=== PATIENT | female | born 1975 | race Hispanic/Latino ===

== ENCOUNTER 2018-05-08 20:14 | Emergency (ER) | payer SELFPAY ==
[~2018-05-08] VITALS: Ht 154.9 cm; Wt 81.6 kg
[~2018-05-08 20:14] MED LIST: XANAX0.5 MG PO
[2018-05-08] MEDS ORDERED: IBUPROFEN 600 MG TAB PO STA (21:12)
[2018-05-08] MEDS ORDERED: ACETAMINOPHEN 325 MG TAB PO ONE ×2 (21:15)
[2018-05-08] MEDS ORDERED: DEXAMETHASONE 10MG/ML PF INJ IV ONE (21:15)
[2018-05-08] MEDS ORDERED: IBUPROFEN 600 MG TAB ONE (21:16)
[2018-05-08] MEDS ORDERED: ACETAMINOPHEN 325 MG TAB ONE (21:16)
[2018-05-08] MEDS ORDERED: DEXAMETHASONE SOD PHOS 10 MG/1 ML VIAL ONE (21:17)
[2018-05-08 22:10] VITALS: BP 116/70
== END 2018-05-08 22:15 | disposition home or self-care (01) ==
LOC: ER 20:14
DX: R50.9 Fever, unspecified (principal); J02.0 Streptococcal pharyngitis
CPT/HCPCS: 83518; 87070; 93005; 99282; J1100

== ENCOUNTER 2018-05-11 07:37 | Emergency (ER) | payer SELFPAY ==
[~2018-05-11] VITALS: Ht 154.9 cm; Wt 81.6 kg
--- NOTE | 2018-05-11 08:34 | Diagnostic Imaging Report ---
Soft Tissue Neck CPT code: 57339 History: Sore throat, fever Comparison: Chest x-ray 04/10/2017. Findings: AP and lateral views obtained. There is no radiopaque foreign body. A calcified stylohyoid ligament projects inferior to the anterior arch of C1 on lateral image. The prevertebral soft tissues are normal. No enlargement of the adenoids. The airway is neither dilated nor narrowed. The epiglottis is normal. The osseous structures are intact. There are mild degenerative changes at C5-6. Calcified granuloma or bone island in the left upper lobe measures 5 mm and is stable. IMPRESSION: No abnormalities of the soft tissues of the neck. Signed by: Dr. Ana Magana MD on 05/11/2018 8:31 AM
[2018-05-11 08:41] VITALS: BP 127/98
== END 2018-05-11 09:00 | disposition home or self-care (01) ==
LOC: ER 07:37
DX: J02.9 Acute pharyngitis, unspecified (principal); F41.9 Anxiety disorder, unspecified
CPT/HCPCS: 70360; 99283

== ENCOUNTER 2020-01-22 10:48 | Emergency (ER) | payer SELFPAY ==
[~2020-01-22] VITALS: Ht 154.9 cm; Wt 81.6 kg
--- OUTSIDE RECORDS SUMMARY | 2020-01-22 10:50 | XMS REPORT ---
Author [facility] Address Unknown Phone Unavailable Care Team Providers Care Embedded Hardware Engineer Name Role Phone NO, PCP PP Unavailable Lauryn ROMEO Unavailable Unavailable Payers Payer Name Policy Type Policy Number Effective Date Expiration Date Problems This patient has no known problems. Allergies, Adverse Reactions, Alerts Allergy Name Allergy Type Status Severity Reaction(s) Onset Date Inactive Date Treating Clinician Comments No Known Allergies DA Active U 2018-12-05 00:00:00 Medications Ordered Medication Name Filled Medication Name Start Date Stop Date Current Medication? Ordering Clinician Indication Dosage Frequency Signature (SIG) Comments Components Alprazolam (Xanax) 0.5 Mg Tablet Alprazolam (Xanax) 0.5 Mg Tablet Yes .5 As Needed Encounters Start Date/Time End Date/Time Encounter Type Admission Type Attending Clinicians Care Facility Care Department Encounter ID 2018-05-11 07:37:00 2018-05-11 09:00:00 Departed Emergency Room 1 NIKA ROMEO [facility] [id number] 2018-05-08 20:14:00 2018-05-08 22:15:00 Departed Emergency Room [facility] [id number] Results Test Description Test Time Test Comments Text Results Atomic Results Result Comments D-DIMER 2019-03-25 20:37:00 D-DIMER (test code=DDIMER) 440.00 ng/mLFEU 0-500 Clinical Cut-off value for D- Dimer is 500 ng/mL FEU. Comment: The [employer] D-Dimer assay is intended for use asan aid in the diagnosis of venous thromboembolism (VTE)[deep vein thrombosis (DVT) or pulmonary embolism (PE)].The measurement of D-Dimer should not be used as an aid inthe diagnosis of VTE, in patient with: -Therapeutic dose anticoagulant therapy for >24 hours -Fibrinolytic therapy within previous 7 days -Trauma or surgery within previous 4 weeks -Disseminated malignancies - Aortic aneurysm -Sepsis, severe infections, pneumonia, severe skin infections -Liver cirrhosis - BASIC METABOLIC [id number] 19:54:00* Test Item Value Reference Range Comments SODIUM (test code=NA) 137 mmol/L 136-145 POTASSIUM (test code=K) 4.1 mmol/L 3.5-5.1 CHLORIDE (test code=CL) 111.0 mmol/L 98-107 CARBON DIOXIDE (test code=CO2) 18.0 mmol/L 21-32 ANION GAP (test code=GAP) 12.1 10-20 GLUCOSE (test code=GLU) 88 mg/dL 74-106 BLOOD UREA NITROGEN (test code=BUN) 10 mg/dL 7-18 GLOMERULAR FILTRATION RATE (test code=GFR) > 60 mL/min >=60 Estimated GFR by using Modified MDRD formula.Chronic kidney disease is defined as either kidney damageor GFR <60 mL/min/1.73 m2 for >3 months. CREATININE (test code=CREAT) 0.80 mg/dL 0.55-1.02 Note change in reference range due to change in reagent. BUN/CREATININE RATIO (test code=BUN/CREA) 12.5 10-20 CALCIUM (test code=CA) 8.3 mg/dL 8.5-10.1 HCG SERUM [id number] 19:54:00* Test Item Value Reference Range Comments HCG SERUM QUAL (test code=HCGQL) NEGATIVE NEGATIVE This HCGQL test is NOT applicable for MALE patients.Check with nurse about probable order error.If Tumor Marker Test needed, nurse should order test "HCGTU"(Test #550.96397) [id number] 19:54:00* Test Item Value Reference Range Comments TROPONIN-I (test code=TROPI) <0.015 ng/mL 0-0.045 BASIC METABOLIC [id number] 19:43:00* Test Item Value Reference Range Comments SODIUM (test code=NA) 137 mmol/L 136-145 POTASSIUM (test code=K) 4.1 mmol/L 3.5-5.1 CHLORIDE (test code=CL) 111.0 mmol/L 98-107 CARBON DIOXIDE (test code=CO2) mmol/L 21-32 ANION GAP (test code=GAP) 10-20 GLUCOSE (test code=GLU) mg/dL 74-106 BLOOD UREA NITROGEN (test code=BUN) mg/dL 7-18 GLOMERULAR FILTRATION RATE (test code=GFR) mL/min >=60 CREATININE (test code=CREAT) mg/dL 0.55-1.02 BUN/CREATININE RATIO (test code=BUN/CREA) 10-20 CALCIUM (test code=CA) mg/dL 8.5-10.1 HCG SERUM [id number] 19:43:00* Test Item Value Reference Range Comments HCG SERUM QUAL (test code=HCGQL) NEGATIVE NEGATIVE This HCGQL test is NOT applicable for MALE patients.Check with nurse about probable order error.If Tumor Marker Test needed, nurse should order test "HCGTU"(Test #550.46499) [id number] 19:43:00* Test Item Value Reference Range Comments TROPONIN-I (test code=TROPI) ng/mL 0-0.045 BASIC METABOLIC [id number] 19:38:00* Test Item Value Reference Range Comments SODIUM (test code=NA) mmol/L 136-145 POTASSIUM (test code=K) mmol/L 3.5-5.1 CHLORIDE (test code=CL) mmol/L 98-107 CARBON DIOXIDE (test code=CO2) mmol/L 21-32 ANION GAP (test code=GAP) 10-20 GLUCOSE (test code=GLU) mg/dL 74-106 BLOOD UREA NITROGEN (test code=BUN) mg/dL 7-18 GLOMERULAR FILTRATION RATE (test code=GFR) mL/min >=60 CREATININE (test code=CREAT) mg/dL 0.55-1.02 BUN/CREATININE RATIO (test code=BUN/CREA) 10-20 CALCIUM (test code=CA) mg/dL 8.5-10.1 HCG SERUM [id number] 19:38:00* Test Item Value Reference Range Comments HCG SERUM QUAL (test code=HCGQL) NEGATIVE NEGATIVE This HCGQL test is NOT applicable for MALE patients.Check with nurse about probable order error.If Tumor Marker Test needed, nurse should order test "HCGTU"(Test #550.81994) [id number] 19:38:00* Test Item Value Reference Range Comments TROPONIN-I (test code=TROPI) ng/mL 0-0.045 CBC W/AUTO [id number] 19:36:00* Test Item Value Reference Range Comments WHITE BLOOD CELL (test code=WBC) 12.5 K/mm3 4.5-12.5 RED BLOOD CELL (test code=RBC) 4.79 mill/mm3 3.7-5.2 HEMOGLOBIN (test code=HGB) 11.9 gram/dL 11.5-15.5 HEMATOCRIT (test code=HCT) 38.2 % 36.0-46.0 MEAN CELL VOLUME (test code=MCV) 79.7 fL 80-98 MEAN CELL HGB (test code=MCH) 24.8 picogram 27.0-33.0 MEAN CELL HGB CONCETRATION (test code=MCHC) 31.2 gram/dL 33.0-36.0 RED CELL DISTRIBUTION WIDTH (test code=RDW) 15.4 % 11.6-16.2 RED CELL DISTRIBUTION WIDTH SD (test code=RDW-SD) 44.5 fL 37.0-51.0 PLATELET COUNT (test code=PLT) 329 K/mm3 150-450 MEAN PLATELET VOLUME (test code=MPV) 11.3 fL 6.7-11.0 NEUTROPHIL % (test code=NT%) 64.2 % 39.0-69.0 IMMATURE GRANULOCYTE % (test code=IG%) 0.3 % 0.0-5.0 LYMPHOCYTE % (test code=LY%) 26.3 % 25.0-55.0 MONOCYTE % (test code=MO%) 7.7 % 0.0-10.0 EOSINOPHIL % (test code=EO%) 1.3 % 0.0-5.0 BASOPHIL % (test code=BA%) 0.2 % 0.0-1.0 NUCLEATED RBC % (test code=NRBC%) 0.0 % 0-0 NEUTROPHIL # (test code=NT#) 7.99 K/mm3 1.8-7.7 IMMATURE GRANULOCYTE # (test code=IG#) 0.04 x10 3/uL 0-0.03 LYMPHOCYTE # (test code=LY#) 3.27 K/mm3 1.0-5.0 MONOCYTE # (test code=MO#) 0.96 K/mm3 0-0.8 EOSINOPHIL # (test code=EO#) 0.16 K/mm3 0.0-0.5 BASOPHIL # (test code=BA#) 0.03 K/mm3 0.0-0.2 NUCLEATED RBC # (test code=NRBC#) 0.00 K/mm3 0.0-0.1 - XR CHEST 1 [id number] 19:10:00 FAX: Ziyad Andrews [phone] [place]: St: PRE Name: ROMAIN TONEY [facility] : [birth year] Age/S: 43/F [address] [facility] Unit #: [id number] Loc: [place] [address] Phys: Ziyad Ramos MD Acct: [id number] Dis Date: Status: PRE ER PHONE #: [phone] Exam Date: 03/25/2019 1908 FAX #: [phone] Reason: CODE SEPSIS EXAMS: CPT CODE: [id number] XR CHEST 1 V 53888 REASON FOR EXAM: CODE SEPSIS EXAM ORDER DATE: 03/25/2019 6:38 PM Ordering Shamar: Ziyad Ramos MD PROCEDURE: - XR CHEST 1 V C OMPARISON: FINDINGS: Portable AP frontal view of the chest obtain ed at 7:05 PM shows clear lungs without evidence of consolidation. There i s no evidence of effusion. The heart size is within normal limits. P ulmonary vasculatures are unremarkable. IMPRESSION: No active d isease. at 191 Reported and signed by: Charlie Gruber M.D. CC: Ziyad Ramos MD Technologist: HER[facility]O JACKSON [facility] Date/Time/By: 03/25 (1909) : By: ShabbirVTL Orig Print D/T: S: 03/25/2019 (1912) PAGE 1 Signed Report NECK SOFT [id number] 08:27:00 [place] [address] Patient Name: ROMAIN LAMBERT MR #: [id number] : 1975 Age/Sex: 43/F Req #: [id number] Adm Physician: Ordered by: NIKA ROMEO MD Report #: [id number] Location: ER Room/Bed: Procedure: [id number] DX/NECK SOFT TISSUE Exam D ate: 05/11/18 Exam Time: 0810 REPORT STATUS: Si gned Soft Tissue Neck CPT code: 61677 History: Sore throat, fever Comparison: Chest x-ray 04/10/2017. Findings: AP and lateral views o btained. There is no radiopaque foreign body. A calcified stylohyoid ligament projects inferior to the anterior arch of C1 on lateral image. The prevertebr al soft tissues are normal. No enlargement of the adenoids. The airway is neit her dilated nor narrowed. The epiglottis is normal. The osseous structur es are intact. There are mild degenerative changes at C5-6. Calcified granu ashanti or bone island in the left upper lobe measures 5 mm and is stable. I MPRESSION: No abnormalities of the soft tissues of the neck. Signed by : Dr. Betty Magana MD on 05/11/2018 8:31 AM Dictated By: BETTY ROBBINS MD 0 Trans cribed By: SRIKANTH on 05/11/18830 COPY TO: NIKA ROMEO MD Group A Streptococcus [id number] 21:43:00* Test Item Value Reference Range Comments Group A Streptococcus Screen (test ianl=37653-7) NEGATIVE NEGATIVE
[2020-01-22] MEDS ORDERED: KETOROLAC TROMETHAMINE 60 MG/2 ML VIAL IM ONE (11:00)
[2020-01-22] MEDS ORDERED: GABAPENTIN 300 MG CAP PO ONE (11:00)
[2020-01-22] MEDS ORDERED: GABAPENTIN 300 MG CAP ONE (11:20)
== END 2020-01-22 11:59 | disposition home or self-care (01) ==
LOC: ER 10:48
DX: S16.1XXA Strain of muscle, fascia and tendon at neck level, initial encounter (principal); M54.12 Radiculopathy, cervical region; X50.0XXA Overexertion from strenuous movement or load, initial encounter; Y92.008 Other place in unspecified non-institutional (private) residence as the place of occurrence of the external cause; F17.210 Nicotine dependence, cigarettes, uncomplicated
CPT/HCPCS: 99282; J1885

== ENCOUNTER 2021-05-15 18:22 | Emergency (ER) | payer SELFPAY ==
[~2021-05-15] VITALS: Ht 154.9 cm; Wt 81.6 kg
[2021-05-15] MEDS ORDERED: ACETAMINOPHEN 325 MG TAB PO ONE (18:45)
[2021-05-15] MEDS ORDERED: CASIRIVIMAB/IMDEVIMAB 10 ML in SODIUM CHLORIDE 0.9% 100 ML IV ONE (20:00)
== END 2021-05-15 22:37 | disposition home or self-care (01) ==
LOC: ER 20:10
DX: R50.9 Fever, unspecified (principal); R05 Cough; U07.1 COVID-19; F41.9 Anxiety disorder, unspecified
CPT/HCPCS: 99284; U0002

== ENCOUNTER 2022-04-29 09:38 | Emergency (ER) | payer SELFPAY ==
[~2022-04-29] VITALS: Ht 154.9 cm; Wt 81.6 kg
[2022-04-29] MEDS ORDERED: POLYMYXIN B-TMP10 ML OS (09:59)
== END 2022-04-29 10:07 | disposition home or self-care (01) ==
LOC: ER 09:52
DX: S05.02XA Injury of conjunctiva and corneal abrasion without foreign body, left eye, initial encounter (principal); H10.9 Unspecified conjunctivitis; F41.9 Anxiety disorder, unspecified
CPT/HCPCS: 99282

== ENCOUNTER 2022-10-29 08:27 | Emergency (ER) | payer SELFPAY ==
[~2022-10-29] VITALS: Ht 154.9 cm; Wt 81.6 kg
[~2022-10-29 08:27] MED LIST changes: +POLYMYXIN B-TMP10 ML OS
[2022-10-29] MEDS ORDERED: AZITHROMYCIN250 MG PO (09:33)
[2022-10-29] MEDS ORDERED: BENZONATATE100 MG PO (09:33)
[2022-10-29] MEDS ORDERED: PREDNISONE20 MG PO (09:33)
== END 2022-10-29 10:38 | disposition home or self-care (01) ==
LOC: ER 08:40
DX: R05.9 Cough, unspecified (principal); J40 Bronchitis, not specified as acute or chronic; F41.9 Anxiety disorder, unspecified
CPT/HCPCS: 71046; 99283